=== PATIENT | female | born 1990 | race Caucasian/White ===

== ENCOUNTER 2017-04-05 08:47 | Emergency (ER) | payer OTHER ==
[2017-04-05] MEDS ORDERED: diphenhydrAMINE HCL 50 MG/ML VIAL IV ONE (09:41)
[2017-04-05] MEDS ORDERED: NORMAL SALINE 1,000 ML IV ONE (09:41)
[2017-04-05] MEDS ORDERED: METOCLOPRAMIDE HCL 5 MG/ML VIAL IV ONE (09:41)
--- OUTSIDE RECORDS SUMMARY | 2017-04-05 09:42 | XMS REPORT | Continuity of Care Document ---
:1990 Author Organization [facility] ([facility]) Address [place] [address] Phone [phone] Care Team Providers Name Role Phone Jaquan Whatley Primary Care Provider [phone] Source Comments This disclosure is being made pursuant to the Care Everywhere program, applicable federal and state laws, and may not contain all informaitonavailable regarding this patient.[facility] ([facility]) Active Allergies and Adverse Reactions Allergen Noted Date Severity Reactions Comments Penicillins 03/13/2015 Urticaria (Hives) Sulfadoxine Unknown Current Medications Prescription Sig. Disp. Refills Start Date End Date Status LORazepam 1 mg tablet Take 1 mg by mouth Active at noon and 2 mg at bedtime. lamoTRIgine 200 mg Take 200 mg by mouth Active tablet 2 times daily ondansetron 4 mg tablet Take 4 mg by mouth Active every 8 hours as needed gemfibrozil 600 mg Take 600 mg by mouth Active tablet 2 times daily albuterol 90 Use 2 Puffs by Active mcg/Actuation inhaler inhalation every 6 hours as needed multivitamin tablet Take 1 Tab by mouth Active daily ferrous sulfate 325 mg Take 325 mg by mouth Active (65 mg iron) tablet daily diphenoxylate-atropine Take 1 Tab by mouth Active 2.5-0.025 mg per tablet daily as needed nicotine 21 mg/24 hr Apply 21 mg on the Active patch skin daily clotrimazole-betamethas Apply topically as Active one 1-0.05% cream needed aluminum-magnesium Take 30 mL by mouth 355 mL 11 03/16/2015 Active hydroxide-simethicone every 4 hours as 200-200-20 mg/5 mL needed suspension melatonin 3 mg tablet Take 1 Tab (3 mg 30 Tab 11 03/16/2015 Active total) by mouth at bedtime oxyCODONE 5 mg Take 1 Tab (5 mg 28 Tab 0 03/16/2015 Active immediate release total) by mouth tablet every 6 hours as needed GABAPENTIN 300 mg Take 300 mg by mouth 0 05/17/2015 Active capsule 3 times daily Active Problems Problem Noted Date Drug-induced acute pancreatitis 05/22/2015 Overview: DIFFUSE INTERSTITIAL Depressive disorder, not elsewhere classified 03/13/2015 Hypertriglyceridemia 03/13/2015 Uncomplicated asthma 03/13/2015 Migraine without intractable migraine 03/13/2015 Seizure disorder 03/13/2015 History of acute pancreatitis 03/13/2015 Borderline personality disorder 03/13/2015 Sleep disorder 03/13/2015 Overview: ON SEROQUEL TO ENHANCE SLEEP Borderline intellectual disability 03/13/2015 Overview: LOW VERBAL IQ SCORES Chronic epigastric pain 03/13/2015 Overview: JUN 2014 TO CURRENT Cigarette nicotine dependence with withdrawal 03/13/2015 Obstructive cholestatic liver disease 03/13/2015 Truncal obesity 03/13/2015 Obesity (BMI 30-39.9) 03/13/2015 Resolved Problems Problem Noted Date Resolved Date Recurrent pancreatitis 03/13/2015 03/16/2015 Pancreatic pain 03/13/2015 03/16/2015 Social History Tobacco Use Types Packs/Day Years Used Date Former Smoker Cigarettes 0.2 8 Quit: 03/10/2015 Smokeless Tobacco: Never Used Tobacco Cessation:Counseling Given: Yes Comments: Alcohol Use Drinks/Week oz/Week Comments No Last Filed Vital Signs Vital Sign Reading Time Taken Blood Pressure 117/69 05/17/2015 8:03 AM CDT Pulse 70 05/17/2015 8:03 AM CDT Temperature 36.8 C (98.2 F) 05/17/2015 8:03 AM CDT Respiratory Rate 18 05/17/2015 8:03 AM CDT Height 1.626 m (5' 4") 05/17/2015 8:03 AM CDT Weight 93.3 kg (205 lb 11 oz) 05/17/2015 8:03 AM CDT Body Mass Index 35.29 05/17/2015 8:03 AM CDT Oxygen Saturation 97% 03/16/2015 11:55 AM CDT Plan of Care Health Maintenance Due Date Last Done Comments Hepatitis B Vaccine (1 of 3 - Primary Series) 1990 Tdap Vaccine 1999 Cervical Cancer Screening 2006 Lipid Disorder Screening 2006 MMR Vaccine 2006 Td Vaccine 2006 Varicella Vaccine (1 of 2 - Adult - No Evidence of 2006 Immunity) Pneumococcal Vaccine (1 of 1 - PPSV23) 2007 Influenza Vaccine: Seasonal (#1) 05/28/2016 Results from Last 3 Months Not on file
--- NOTE | 2017-04-05 09:52 | ERNOTE ---
Medical Problem HPI - General Chief Complaint: Nausea/Vomiting Time Seen by Provider: 04/05/17 09:37 Source: patient - Immun/Allergies/Home Medications Immunizations: IMMUNIZATION HX Immunizations Up to Date Yes History of Influenza Vaccine Yes Hx Pneumococcal Vaccination No Allergies/Adverse Reactions: Allergies Sulfa (Sulfonamide Antibiotics) [Sulfa(Sulfonamide Antibiotics)] Allergy (Mild, Verified 04/05/17 09:02) Hives varenicline tartrate [From Chantix] Allergy (Verified 04/05/17 09:02) Penicillins Adverse Reaction (Mild, Verified 04/05/17 09:02) RASH quetiapine Adverse Reaction (Verified 04/05/17 09:02) pancreatitis risperidone [From Risperdal] Adverse Reaction (Verified 04/05/17 09:02) pancreatitis tramadol Adverse Reaction (Verified 04/05/17 09:02) Other Home Medications: HOME MEDICATIONS lamoTRIgine [Lamictal Xr] 100 mg PO DAILY 02/26/15 [Last Taken Unknown] traZODone HCL [Desyrel] 100 mg PO DAILY 11/13/15 [Last Taken Unknown] Gabapentin 800 mg PO DAILY 01/10/16 [Last Taken Unknown] OLANZapine [Zyprexa] 5 mg PO DAILY 01/10/16 [Last Taken Unknown] Dicyclomine HCl [Bentyl] 10 - 20 mg PO TID #180 tab 04/05/17 [Last Taken Unknown ] Ondansetron [Zofran Odt] 4 mg PO Q6H PRN #20 tab 04/05/17 [Last Taken Unknown] Topiramate [Topamax] 25 mg PO BID 04/05/17 [Last Taken Unknown] - History of Present History Narrative: She presents with recurrent mid abdominal pain. Pain was yesterday patient states she's had these pains before and gets pancreatitis. She complains of being nauseated however she denies any emesis. Timing: intermittent Severity: moderate Modifying Factors - (Worsens): Present: eating Review of Systems - Review of Systems Constitutional: Present: See HPI EYE: Present: no symptoms reported ENT: Present: no symptoms reported Respiratory: Present: no symptoms reported Cardiology: Present: no symptoms reported Gastrointestinal/Abdominal: Present: nausea, abdominal pain Genitourinary: Present: no symptoms reported Musculoskeletal: Present: no symptoms reported Skin: Present: no symptoms reported Neurological: Present: no symptoms reported Endocrine: Present: no symptoms reported Hematologic/Lymphatic: Present: no symptoms reported Psych: Present: no symptoms reported - Patient's Past Medical History Patient History - Medical: Anxiety, Bipolar, Depression, Migraines, Seizures, UTI'S, Other - pancreatitis Patient History - Cardiac/Respiratory: No pertinent hx Patient History - Cancer: No Hx of Cancer Patient History - Surgical Procedures: EGD, Ear Tubes, T & A Patient History - Other: None LMP (females 10-50): last week LMP (Calendar): 07/30/16 - Family History Mother Family History - Medical: Other Father Family History - Medical: Other Family History - Cardiac/Respiratory: Myocardial Infarction Grandfather-Paternal Family History - Cardiac/Respiratory: Myocardial Infarction - Social History Living Situations: home Abuse History: No History of abuse Psych History: Hx of Anxiety, Hx of Depression, Hx of Bipolar Disorder, Current tx/ever been on anti-depressants or anti-anxiety meds Does anyone smoke in the home?: Yes Smoking Status: Current every day smoker Have you smoked in the past 12 months: Yes Alcohol Use: none Drug Use: none - Immunizations Immunizations Up to Date: Yes Hx Pneumococcal Vaccination: No History of Influenza Vaccine: Yes Physical Exam - Physical Exam General Appearance: Present: wd/wn, alert, moderate distress Eye Exam: Normal inspection: bilateral, PERRL: bilateral Ears, Nose, Throat: Present: normal ENT inspection, H, normal pharynx Neck: Present: normal inspection, nontender Respiratory: Present: no respiratory distress, normal breath sounds, no accessory muscle use, chest nontender, lungs clear Cardiovascular/Chest: Present: regular rate, rhythm, no murmur, normal peripheral pulses Gastrointestinal/Abdominal: Present: normal bowel sounds, nondistended, soft, no organomegaly, tenderness Rectal Exam: Present: deferred Back Exam: Present: normal inspection, normal range of motion Extremity Exam: Present: normal inspection, non-tender, no edema, normal range of motion Neurological Exam: Present: alert, oriented, normal mood/affect Skin Exam: Present: normal color, warm/dry Lymphatic Exam: Present: no adenopathy ED Progress - Results and Orders Patient's Lab Results:: I have reviewed the patient's lab results. - Vital Signs Patient's Vital Signs:: I have reviewed the patient's vital signs. Vital Signs: Vital Signs 04/05/17 08:58 Temperature 36.9 C Pulse Rate 78 Respiratory 16 Rate Blood Pressure 130/71 O2 Sat by Pulse 97 Oximetry - Progress/Reassessment Chief Complaint: Nausea/Vomiting Progress:: Improved Plan - Plan Plan: Patient was offered x-ray examination for further investigation of her abdominal pain and she refused. Patient be started on Zofran and Bentyl. She she's had this pain in the past and normally her pancreatitis and since it's not she thinks is probably just an upset stomach. Patient would prefer to go home and manage the pain there. Departure - Departure Clinical Impression: Irritable bowel syndrome (IBS) Qualifiers: Irritable bowel syndrome type: without diarrhea Qualified Code(s): K58.9 - Irritable bowel syndrome without diarrhea Abdominal pain Qualifiers: Abdominal location: generalized Qualified Code(s): R10.84 - Generalized abdominal pain Disposition: Home self-care Condition: Good Instructions: Irritable Bowel Syndrome, Adult Referrals: Quinton Shane MD [Primary Care Provider] - Prescriptions: Dicyclomine HCl [Bentyl] 10 - 20 mg PO TID #180 tab Ondansetron [Zofran Odt] 4 mg PO Q6H PRN #20 tab PRN Reason: Nausea And Vomiting
[2017-04-05 09:59] LABS: Hematocrit 39.4 % (37.0-47.0); Hemoglobin 13.3 gm/dL (12.5-16.0); Mean Cell Volume 80.7 fl (78-100); Mean Corpuscular Hemoglobin 27.3 pg (27-31); Mean Corpuscular Hgb Conc 33.8 g/dl (32-36); Mean Platelet Volume 11.5 fl (6.0-9.5); Neutrophil # 10.2 K/mm3 (1.3-6.0); Neutrophil % 77.3 % (42-75.0); Platelet Count 292 K/mm3 (150-450); Red Blood Count 4.88 M/mm3 (4.2-5.4); Red Cell Distribution Width 14.4 % (11.5-14.0); White Blood Count 13.1 K/mm3 (4.0-10.5)
[2017-04-05] MEDS ORDERED: METOCLOPRAMIDE HCL 5 MG/ML VIAL ONE (10:13)
[2017-04-05] MEDS ORDERED: diphenhydrAMINE HCL 50 MG/ML VIAL ONE (10:13)
[2017-04-05 10:14] LABS: Albumin * 3.9 gm/dl (3.4-5.0); Anion Gap 13.7 mmol/L (6.8-13.8); BUN/Creatinine Ratio 12.2 (9.0-21.6); Bilirubin, Total 0.3 mg/dL (0.0-1.1); Ca. Corrected For Albumin 8.9 mg/dL (8.4-10.2); Calcium * 9.1 mg/dL (7.9-10.9); Carbon Dioxide 25.2 mmol/L (24-32.6); Magnesium 1.9 mg/dL (1.2-2.8); Potassium 3.9 mmol/L (3.4-4.6); Total Protein 7.5 gm/dL (6.2-8.2)
[2017-04-05 10:21] LABS: Urine Bilirubin Negative (NEGATIVE); Urine Blood Negative /ul (NEGATIVE); Urine Ketone Negative (NEGATIVE); Urine Nitrite Negative (NEGATIVE); Urine Protein Negative (NEGATIVE); Urine Urobilinogen Normal (NORMAL)
[2017-04-05 10:30] LABS: Urine Appearance Clear; Urine Bacteria TRACE; Urine Color Yellow; Urine RBC None Seen /hpf (0-5); Urine WBC None Seen /hpf (0-5)
[2017-04-05 11:03] VITALS: BP 105/56
== END 2017-04-05 12:06 | disposition home or self-care (01) ==
LOC: ER 08:47
DX: K58.9 Irritable bowel syndrome, unspecified (principal); R10.84 Generalized abdominal pain; F17.200 Nicotine dependence, unspecified, uncomplicated; Z87.440 Personal history of urinary (tract) infections; F31.9 Bipolar disorder, unspecified; R56.9 Unspecified convulsions

== ENCOUNTER 2017-04-14 10:06 | Emergency (ER) | payer OTHER ==
[2017-04-14 10:14] VITALS: BP 114/62
--- OUTSIDE RECORDS SUMMARY | 2017-04-14 10:36 | XMS REPORT | Continuity of Care Document ---
:1990 Author Organization [facility] ([facility]) Address [place] [address] Phone [phone] Care Team Providers Name Role Phone Jaquan Whatley Primary Care Provider [phone] Source Comments This disclosure is being made pursuant to the Care Everywhere program, applicable federal and state laws, and may not contain all informaitonavailable regarding this patient.[facility] ([facility]) Active Allergies and Adverse Reactions Allergen Noted [...]
[2017-04-14] MEDS ORDERED: PROMETHAZINE HCL 12.5 MG SUPP.RECT RC ONE (10:40)
[2017-04-14] MEDS ORDERED: PROMETHAZINE HCL 25 MG SUPP.RECT RC ONE (10:45)
--- NOTE | 2017-04-14 10:56 | ERNOTE ---
Medical Problem HPI - Narrative Date of Service: 04/14/17 - General Chief Complaint: Nausea/Vomiting Time Seen by Provider: 04/14/17 10:22 Source: patient, RN notes reviewed Exam Limitations: no limitations - Immun/Allergies/Home Medications Immunizations: IMMUNIZATION HX Immunizations Up to Date Yes History of Influenza Vaccine No Hx Pneumococcal Vaccination No Allergies/Adverse Reactions: Allergies Sulfa (Sulfonamide Antibiotics) [Sulfa(Sulfonamide Antibiotics)] Allergy (Mild, Verified 04/05/17 09:02) Hives varenicline tartrate [From Chantix] Allergy (Verified 04/05/17 09:02) Penicillins Adverse Reaction (Mild, Verified 04/05/17 09:02) RASH quetiapine Adverse Reaction (Verified 04/05/17 09:02) pancreatitis risperidone [From Risperdal] Adverse Reaction (Verified 04/05/17 09:02) pancreatitis tramadol Adverse Reaction (Verified 04/05/17 09:02) Other Home Medications: HOME MEDICATIONS lamoTRIgine [Lamictal Xr] 100 mg PO DAILY 02/26/15 [Last Taken Unknown] traZODone HCL [Desyrel] 100 mg PO DAILY 11/13/15 [Last Taken Unknown] Gabapentin 800 mg PO DAILY 01/10/16 [Last Taken Unknown] OLANZapine [Zyprexa] 5 mg PO DAILY 01/10/16 [Last Taken Unknown] Dicyclomine HCl [Bentyl] 10 - 20 mg PO TID #180 tab 04/05/17 [Last Taken Unknown ] Ondansetron [Zofran Odt] 4 mg PO Q6H PRN #20 tab 04/05/17 [Last Taken Unknown] Topiramate [Topamax] 25 mg PO BID 04/05/17 [Last Taken Unknown] - Pain Score Pain Score #1 Pain Score: 0 - History of Present History Narrative: 26 y/o female to ED alone by private vehicle after being sent home from work for vomiting and diarrhea. She also complains of dizziness. She reports needing a work excuse for today. Her initial complaint when she checked in was that she needed a test. Her LMP was approximately a month ago. She was seen on 04/05/17 for similar complaints. She reports that she did get better, but then began having vomiting and diarrhea again last evening. She took Zofran this morning with some relief, but then vomited again after a couple of hours. Date (Duration): 04/13/17 Review of Systems - Review of Systems Constitutional: Present: recent illness, malaise. Absent: fever, chills, weight loss EYE: Present: no symptoms reported ENT: Present: no symptoms reported Respiratory: Absent: shortness of breath, cough Cardiology: Absent: chest pain, syncope Gastrointestinal/Abdominal: Present: nausea, vomiting, diarrhea, eating less, drinking less. Absent: abdominal pain Genitourinary: Absent: dysuria, hematuria, other - irregular menses Musculoskeletal: Absent: back pain, muscle pain, neck pain Skin: Absent: rash, lesions Neurological: Present: dizziness/light-headedness. Absent: headache, weakness Endocrine: Present: no symptoms reported Hematologic/Lymphatic: Present: no symptoms reported Psych: Present: no symptoms reported - Patient's Past Medical History Patient History - Medical: Anxiety, Bipolar, Depression, Migraines, Obesity, Seizures, UTI'S, Other Patient History - Cardiac/Respiratory: No pertinent hx Patient History - Cancer: No Hx of Cancer Patient History - Surgical Procedures: EGD, Ear Tubes, T & A Patient History - Other: None LMP (females 10-50): 1 month - Family History Mother Family History - Medical: Other Father Family History - Medical: Other Family History - Cardiac/Respiratory: Myocardial Infarction Grandfather-Paternal Family History - Cardiac/Respiratory: Myocardial Infarction - Social History Living Situations: home Abuse History: No History of abuse Psych History: Hx of Anxiety, Hx of Depression, Hx of Bipolar Disorder, Current tx/ever been on anti-depressants or anti-anxiety meds Does anyone smoke in the home?: Yes Smoking Status: Current every day smoker Have you smoked in the past 12 months: Yes Alcohol Use: none Drug Use: none - Immunizations Immunizations Up to Date: Yes Hx Pneumococcal Vaccination: No History of Influenza Vaccine: No Physical Exam - Physical Exam General Appearance: Present: wd/wn, alert, no apparent distress, obese Neck: Present: normal inspection, nontender, supple, full range of motion Respiratory: Present: no respiratory distress, normal breath sounds, no accessory muscle use, lungs clear Cardiovascular/Chest: Present: regular rate, rhythm, no murmur, normal peripheral pulses Gastrointestinal/Abdominal: Present: normal bowel sounds, nontender, nondistended, soft. Absent: guarding, rebound, mass Back Exam: Present: normal inspection, normal range of motion, no CVA tenderness Extremity Exam: Present: normal inspection, normal range of motion, no edema Neurological Exam: Present: alert, oriented, normal mood/affect, no motor/ sensory deficits Skin Exam: Present: normal color, warm/dry ED Progress - Results and Orders Patient's Lab Results:: I have reviewed the patient's lab results. - Vital Signs Patient's Vital Signs:: I have reviewed the patient's vital signs. Vital Signs: Vital Signs 04/14/17 10:10 Temperature 36.1 C L Pulse Rate 73 Respiratory 16 Rate Blood Pressure 114/62 O2 Sat by Pulse 97 Oximetry - Progress/Reassessment Chief Complaint: Nausea/Vomiting Progress:: Unchanged Plan - Plan Plan: No vomiting or diarrhea while in department. Patient is well appearing. test is negative. Phenergan suppository sent home with patient to use when she gets there because she has to drive home. Departure - Departure Clinical Impression: Nausea vomiting and diarrhea Disposition: Home self-care Condition: Stable Instructions: Viral Gastroenteritis, Adult, [id number], Form - Excuse from Work, School, or Physical Activity Referrals: Quinton Shane MD [Primary Care Provider] -
== END 2017-04-14 10:47 | disposition home or self-care (01) ==
LOC: ER 10:06
DX: R11.2 Nausea with vomiting, unspecified (principal); R19.7 Diarrhea, unspecified; F17.200 Nicotine dependence, unspecified, uncomplicated

== ENCOUNTER 2017-05-29 12:13 | Emergency (ER) | payer OTHER ==
[2017-05-29] MEDS ORDERED: PROMETHAZINE HCL 50 MG/ML AMPUL IM ONE ×3 (13:05→13:26)
[2017-05-29] MEDS ORDERED: KETOROLAC TROMETHAMINE 60 MG/2 ML VIAL IM ONE ×2 (13:05→13:19)
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
[2017-05-29 13:36] VITALS: BP 97/71
== END 2017-05-29 13:39 | disposition home or self-care (01) ==
LOC: ER 12:13
DX: G43.909 Migraine, unspecified, not intractable, without status migrainosus (principal); F17.200 Nicotine dependence, unspecified, uncomplicated

== ENCOUNTER 2017-06-14 20:21 | Emergency (ER) | payer OTHER ==
--- NOTE | 2017-06-14 20:52 | ERNOTE ---
Neuro HPI ER Record Date of Service: 06/14/17 Time Seen by Provider: 06/14/17 20:46 Immunizations: IMMUNIZATION HX Immunizations Up to Date Yes History of Influenza Vaccine Yes Hx Pneumococcal Vaccination No Allergies/Adverse Reactions: Allergies Allergy/AdvReac Type Severity Reaction Status Date / Time Sulfa (Sulfonamide Allergy Mild Hives Verified 06/14/17 20:34 Antibiotics) [Sulfa(Sulfonamide Antibiotics)] varenicline tartrate Allergy Verified 06/14/17 20:34 [From Chantix] Penicillins AdvReac Mild RASH Verified 06/14/17 20:34 quetiapine AdvReac pancreatiti Verified 06/14/17 20:34 s risperidone [From Risperdal] AdvReac pancreatiti Verified 06/14/17 20:34 s tramadol AdvReac Other Verified 06/14/17 20:34 Home Medications: HOME MEDICATIONS Atorvastatin Calcium [Lipitor] 40 mg PO DAILY 06/14/17 [Last Taken Unknown] FLUoxetine HCL [Prozac] 20 mg PO DAILY 06/14/17 [Last Taken Unknown] Fenofibrate Nanocrystallized [Tricor] 145 mg PO DAILY 06/14/17 [Last Taken Unknown] Ferrous Sulfate 325 mg PO DAILY 06/14/17 [Last Taken Unknown] OLANZapine [Zyprexa] 10 mg PO HS 06/14/17 [Last Taken Unknown] Omeprazole 40 mg PO DAILY 06/14/17 [Last Taken Unknown] Ranitidine HCl 300 mg PO HS 06/14/17 [Last Taken Unknown] Topiramate [Topamax] 100 mg PO BID 06/14/17 [Last Taken Unknown] hydrOXYzine HCL [Atarax] 25 mg PO TID PRN 06/14/17 [Last Taken Unknown] levETIRAcetam [Keppra] 1,000 mg PO BID #60 tablet 06/14/17 [Last Taken Unknown] levETIRAcetam [Keppra] 500 mg PO BID 06/14/17 [Last Taken Unknown] traZODone HCL [Trazodone HCl] 1 - 2 tab PO HS 06/14/17 [Last Taken Unknown] - History of Present Illness Narrative: This is a 26-year-old female with a history of seizures. The patient states that she is on Keppra. She says she has been taking it as prescribed. The patient started having generalized tonic-clonic seizures, which are her normal seizure type, on Saturday. They've increased in frequency until this evening when she has had 3 in the last hour, 5 today. These are generalized tonic- clonic seizures. They resolve spontaneously. They last for minutes. Patient denies any fever or chills. She has had a headache. She denies nausea or vomiting. She denies she denies alcohol use she denies drug use patient denies any other complaints. She says everything else is completely normal. Review of Systems - Review of Systems Constitutional: Present: no symptoms reported EYE: Present: no symptoms reported ENT: Present: no symptoms reported Respiratory: Present: no symptoms reported Cardiology: Present: no symptoms reported Gastrointestinal/Abdominal: Present: no symptoms reported Genitourinary: Present: no symptoms reported Musculoskeletal: Present: no symptoms reported Skin: Present: no symptoms reported Neurological: Present: See HPI, headache, dizziness/light-headedness, seizure Endocrine: Present: no symptoms reported Hematologic/Lymphatic: Present: no symptoms reported Psych: Present: no symptoms reported All Other Systems: All systems neg except as marked - Patient's Past Medical History Patient History - Medical: Anxiety, Bipolar, Depression, Migraines, Obesity, Seizures, UTI'S, Other Patient History - Cardiac/Respiratory: Hyperlipidemia Patient History - Cancer: No Hx of Cancer Patient History - Surgical Procedures: EGD, Ear Tubes, T & A Patient History - Other: None LMP (females 10-50): this week LMP (Calendar): 06/09/17 - Family History Mother Family History - Medical: Other Father Family History - Medical: Other Family History - Cardiac/Respiratory: Myocardial Infarction Grandfather-Paternal Family History - Cardiac/Respiratory: Myocardial Infarction - Social History Living Situations: home Abuse History: No History of abuse Psych History: Hx of Anxiety, Hx of Depression, Hx of Bipolar Disorder, Current tx/ever been on anti-depressants or anti-anxiety meds Does anyone smoke in the home?: Yes Smoking Status: Current every day smoker Alcohol Use: none Drug Use: none - Immunizations Immunizations Up to Date: Yes Hx Pneumococcal Vaccination: No History of Influenza Vaccine: Yes Physical Exam - Physical Exam General Appearance: Present: wd/wn, alert, no apparent distress Head Exam: Present: normal inspection, no evidence of injury, other - patient's eyes have non-fatigable horizontal nystagmus. Eye Exam: Normal inspection: bilateral, PERRL: bilateral, EOMI: bilateral Ears, Nose, Throat: Present: normal ENT inspection, normal pharynx Neck: Present: normal inspection, nontender Respiratory: Present: no respiratory distress, normal breath sounds, no accessory muscle use, chest nontender, lungs clear Cardiovascular/Chest: Present: regular rate, rhythm, no murmur, normal peripheral pulses Gastrointestinal/Abdominal: Present: normal bowel sounds, nontender, nondistended, soft, no organomegaly Back Exam: Present: normal inspection, normal range of motion, no CVA tenderness , no vertebral tenderness Extremity Exam: Present: normal inspection, non-tender, no edema Neurological Exam: Present: alert, oriented, normal mood/affect, other - patient has cerebellar dysfunction. Distant diadochokinesis. Difficulty with [id number]. Reflexes are intact. Cognition is slow but intact. Skin Exam: Present: normal color, warm/dry Lymphatic Exam: Present: no adenopathy ED Progress - Results and Orders Patient's Lab Results:: I have reviewed the patient's lab results. - Vital Signs Patient's Vital Signs:: I have reviewed the patient's vital signs. Vital Signs: Vital Signs 06/14/17 20:26 Temperature 36.5 C Pulse Rate 71 Respiratory 16 Rate O2 Sat by Pulse 96 Oximetry - Progress/Reassessment Chief Complaint: Seizure Activity Progress:: Improved Progress Note-Subjective: 06/14/17 21:44 I have discussed the case with the neurologist adult basic education manager at the [facility]. She agrees that increasing the patient's Keppra to 1000 mg twice a day would be appropriate. She does not believe that the patient would need to be admitted to the hospital. The patient does need to have a comprehensive evaluation done by neurology. I'm to remind the patient she is not to drive for the next 6 months. I discussed these things with the patient. She is verbalized understanding. I will write another prescription. I am still waiting the CAT scan report. Departure Clinical Impression: Seizure - Departure Disposition: Home self-care Condition: Stable Instructions: Epilepsy Additional Instructions: As we discussed, I want you to increase your Keppra dose to 1000 mg twice a day. This is double the dose here taking now. If you have any seizures starting tomorrow morning and he did return to the ER. I want you call your family doctor set up a follow-up appointment. He will likely need to see a neurologist in consultation. He can only return to work after you have been released by her primary care doctor. Absolutely no driving until you are released by a neurologist. Return to the ER for new or worrisome symptoms. Referrals: Quinton Shane MD [Primary Care Provider] - Prescriptions: levETIRAcetam [Keppra] 1,000 mg PO BID #60 tablet
[2017-06-14] MEDS ORDERED: MORPHINE SULFATE 4 MG/ML SYRG ONE (21:02)
[2017-06-14] MEDS ORDERED: MORPHINE SULFATE 4 MG/ML SYRG IV ONE (21:02)
[2017-06-14 21:04] LABS: Hematocrit 38.2 % (37.0-47.0); Hemoglobin 12.6 gm/dL (12.5-16.0); Mean Cell Volume 84.1 fl (78-100); Mean Corpuscular Hemoglobin 27.8 pg (27-31); Mean Platelet Volume 11.5 fl (6.0-9.5); Neutrophil # 4.4 K/mm3 (1.3-6.0); Neutrophil % 51.9 % (42-75.0); Platelet Count 238 K/mm3 (150-450); Red Blood Count 4.54 M/mm3 (4.2-5.4); Red Cell Distribution Width 14.5 % (11.5-14.0); White Blood Count 8.5 K/mm3 (4.0-10.5)
[2017-06-14 21:06] LABS: Urine Bilirubin Negative (NEGATIVE); Urine Ketone Negative (NEGATIVE); Urine Nitrite Negative (NEGATIVE); Urine Protein Negative (NEGATIVE); Urine Urobilinogen Normal (NORMAL)
[2017-06-14 21:19] LABS: Albumin * 3.6 gm/dl (3.4-5.0); Anion Gap 14.5 mmol/L (6.8-13.8); BUN/Creatinine Ratio 10.8 (9.0-21.6); Bilirubin, Total 0.2 mg/dL (0.0-1.1); Ca. Corrected For Albumin 8.7 mg/dL (8.4-10.2); Calcium * 8.7 mg/dL (7.9-10.9); Carbon Dioxide 22.9 mmol/L (24-32.6); Potassium 3.4 mmol/L (3.4-4.6)
[2017-06-14 21:33] LABS: Urine Blood 10 /ul (NEGATIVE)
[2017-06-14 21:34] LABS: Urine Appearance Clear; Urine Bacteria 2+; Urine Color Yellow; Urine RBC None Seen /hpf (0-5); Urine WBC 0-5 /hpf (0-5)
[2017-06-14 21:40] LABS: Cocaine Ur Negative (NEGATIVE); Urine Barbiturate Negative (NEGATIVE); Urine Benzodiazepines Negative (NEGATIVE); Urine Opiates Negative (NEGATIVE); Urine PCP Negative (NEGATIVE); Urine THC Negative (NEGATIVE)
[2017-06-14] MEDS ORDERED: HYDROcodone/ACETAMINOPHEN 1 EACH TABLET PO ONE (21:56)
[2017-06-14] MEDS ORDERED: HYDROcodone/ACETAMINOPHEN 1 EACH TABLET ONE (21:59)
[2017-06-14] MEDS ORDERED: levETIRAcetam 500 MG TABLET PO ONE (22:15)
[2017-06-14 22:31] VITALS: BP 106/66
== END 2017-06-14 22:29 | disposition home or self-care (01) ==
LOC: ER 20:21
DX: R56.9 Unspecified convulsions (principal); F41.8 Other specified anxiety disorders; F31.70 Bipolar disorder, currently in remission, most recent episode unspecified; E78.5 Hyperlipidemia, unspecified; F17.200 Nicotine dependence, unspecified, uncomplicated

== ENCOUNTER 2017-06-20 10:56 | Emergency (ER) | payer OTHER ==
[2017-06-20] MEDS ORDERED: ACETAMINOPHEN 325 MG TABLET ONE (11:37)
[2017-06-20 11:38] LABS: Hematocrit 40.1 % (37.0-47.0); Hemoglobin 13.2 gm/dL (12.5-16.0); Mean Cell Volume 84.2 fl (78-100); Mean Corpuscular Hemoglobin 27.7 pg (27-31); Mean Corpuscular Hgb Conc 32.9 g/dl (32-36); Mean Platelet Volume 11.6 fl (6.0-9.5); Neutrophil # 5.6 K/mm3 (1.3-6.0); Platelet Count 239 K/mm3 (150-450); Red Blood Count 4.76 M/mm3 (4.2-5.4); Red Cell Distribution Width 14.2 % (11.5-14.0); White Blood Count 8.8 K/mm3 (4.0-10.5)
[2017-06-20] MEDS: ACETAMINOPHEN 325 MG TABLET PO ONE (11:40)
[2017-06-20 11:55] LABS: Albumin * 3.7 gm/dl (3.4-5.0); Anion Gap 14.5 mmol/L (6.8-13.8); BUN/Creatinine Ratio 12.7 (9.0-21.6); Bilirubin, Total 0.4 mg/dL (0.0-1.1); Ca. Corrected For Albumin 8.9 mg/dL (8.4-10.2); Carbon Dioxide 23.1 mmol/L (24-32.6); Potassium 3.6 mmol/L (3.4-4.6); Total Protein 7.3 gm/dL (6.2-8.2)
[2017-06-20 12:00] LABS: Urine Bilirubin Negative (NEGATIVE); Urine Blood Negative /ul (NEGATIVE); Urine Ketone Negative (NEGATIVE); Urine Nitrite Negative (NEGATIVE); Urine Protein Negative (NEGATIVE); Urine Urobilinogen Normal (NORMAL)
[2017-06-20 12:11] LABS: Urine Appearance Slightly Cloudy; Urine Bacteria 1+; Urine Color Yellow; Urine RBC None Seen /hpf (0-5); Urine Renal Epithelial Cell Few - 1+ /hpf; Urine WBC TRACE /hpf (0-5)
[2017-06-20] MEDS ORDERED: ALBUTEROL SULFATE/IPRATROPIUM 3 ML NEBU IH ONE (12:35)
[2017-06-20 13:17] VITALS: BP 106/66
--- NOTE | 2017-06-20 13:36 | ERNOTE ---
Neuro HPI ER Record Date of Service: 06/20/17 Presenting Symptoms: other - seizure-like episode Time Seen by Provider: 06/20/17 11:09 Source: patient Exam Limitations: no limitations Immunizations: IMMUNIZATION HX Immunizations Up to Date Yes History of Influenza Vaccine Yes Hx Pneumococcal Vaccination No Allergies/Adverse Reactions: Allergies Allergy/AdvReac Type Severity Reaction Status Date / Time Sulfa (Sulfonamide Allergy Mild Hives Verified 06/20/17 11:02 Antibiotics) [Sulfa(Sulfonamide Antibiotics)] varenicline tartrate Allergy Verified 06/20/17 11:02 [From Chantix] Penicillins AdvReac Mild RASH Verified 06/20/17 11:02 quetiapine AdvReac pancreatiti Verified 06/20/17 11:02 s risperidone [From Risperdal] AdvReac pancreatiti Verified 06/20/17 11:02 s tramadol AdvReac Other Verified 06/20/17 11:02 Home Medications: HOME MEDICATIONS Atorvastatin Calcium [Lipitor] 40 mg PO DAILY 06/14/17 [Last Taken Unknown] FLUoxetine HCL [Prozac] 20 mg PO DAILY 06/14/17 [Last Taken Unknown] Fenofibrate Nanocrystallized [Tricor] 145 mg PO DAILY 06/14/17 [Last Taken Unknown] Ferrous Sulfate 325 mg PO DAILY 06/14/17 [Last Taken Unknown] OLANZapine [Zyprexa] 10 mg PO HS 06/14/17 [Last Taken Unknown] Omeprazole 40 mg PO DAILY 06/14/17 [Last Taken Unknown] Ranitidine HCl 300 mg PO HS 06/14/17 [Last Taken Unknown] Topiramate [Topamax] 100 mg PO BID 06/14/17 [Last Taken Unknown] hydrOXYzine HCL [Atarax] 25 mg PO TID PRN 06/14/17 [Last Taken Unknown] levETIRAcetam [Keppra] 1,000 mg PO BID #60 tablet 06/14/17 [Last Taken Unknown] levETIRAcetam [Keppra] 500 mg PO BID 06/14/17 [Last Taken Unknown] traZODone HCL [Trazodone HCl] 1 - 2 tab PO HS 06/14/17 [Last Taken Unknown] - History of Present Illness Narrative: Patient presents to the ED for seizure-like episode. She was seen here recently for these episodes and had her Keppra increased. There has been no tonic- clonic seizure activity. She has episodes that she seems to be "blacking out". This is exactly like what she has had before, nothing different about it. No focal N/T/W. Mild QUEZADA right now. She had an episode yesterday and 5 minute episode today. No Focal N/T/W. no CP or SOB. These are exactly like what she has had for some time, nothing different. Was seen here for same and had keppra increased. No other associated Sx. Onset: intermittent, gone now - Character of Deficits New weakness: Present: other - none Altered sensation: Present: other - none Additional Deficits: Absent: vision problems, difficulty swallowing, weakness Associated Symptoms: Denies: fever/chills, chest pain, neck/back pain, fainting , altered mental status, confused, decreased responsiveness Prior Treament: Reports: recently seen Review of Systems - Review of Systems Constitutional: Absent: fever ENT: Absent: sore throat Respiratory: Absent: shortness of breath Cardiology: Absent: chest pain Gastrointestinal/Abdominal: Absent: abdominal pain Genitourinary: Absent: dysuria Skin: Absent: rash Neurological: Absent: weakness - Patient's Past Medical History Patient History - Medical: Anxiety, Bipolar, Depression, Migraines, Obesity, Seizures, UTI'S, Other Patient History - Cardiac/Respiratory: Hyperlipidemia Patient History - Cancer: No Hx of Cancer Patient History - Surgical Procedures: EGD, Ear Tubes, T & A Patient History - Other: None LMP (females 10-50): last week LMP (Calendar): 06/09/17 - Family History Mother Family History - Medical: Other Father Family History - Medical: Other Family History - Cardiac/Respiratory: Myocardial Infarction Grandfather-Paternal Family History - Cardiac/Respiratory: Myocardial Infarction - Social History Living Situations: home Abuse History: No History of abuse Psych History: Hx of Anxiety, Hx of Depression, Hx of Bipolar Disorder, Current tx/ever been on anti-depressants or anti-anxiety meds Does anyone smoke in the home?: Yes Alcohol Use: none Drug Use: none - Immunizations Immunizations Up to Date: Yes Hx Pneumococcal Vaccination: No History of Influenza Vaccine: Yes Physical Exam - Physical Exam General Appearance: Present: alert, no apparent distress Head Exam: Present: normal inspection, no evidence of injury Eye Exam: Normal inspection: bilateral, PERRL: bilateral Ears, Nose, Throat: Present: normal ENT inspection Neck: Present: normal inspection, other - no meningeal signs Respiratory: Present: no respiratory distress, normal breath sounds, no accessory muscle use, lungs clear Cardiovascular/Chest: Present: regular rate, rhythm Gastrointestinal/Abdominal: Present: normal bowel sounds, nontender, soft. 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 No motor or sensory deficits.. Absent: motor weakness Skin Exam: Present: normal color, warm/dry. Absent: skin rash ED Progress - Results and Orders Patient's Lab Results:: I have reviewed the patient's lab results. - Vital Signs Patient's Vital Signs:: I have reviewed the patient's vital signs. Vital Signs: Vital Signs 06/20/17 06/20/17 06/20/17 10:57 11:03 11:41 Temperature 36.7 C Pulse Rate 61 63 70 Respiratory 13 19 10 L Rate Blood Pressure 104/70 104/70 110/69 O2 Sat by Pulse 98 99 98 Oximetry 06/20/17 06/20/17 06/20/17 12:03 12:17 12:32 Temperature Pulse Rate 60 57 L 59 L Respiratory 22 H 22 H 19 Rate Blood Pressure 97/55 107/65 105/71 O2 Sat by Pulse 98 99 98 Oximetry 06/20/17 06/20/17 12:47 13:16 Temperature Pulse Rate 55 L 52 L Respiratory 14 16 Rate Blood Pressure 101/71 106/66 O2 Sat by Pulse 97 99 Oximetry - Progress/Reassessment Chief Complaint: Seizure Activity Progress Note-Subjective: 06/20/17 13:33 I do not feel a repeat CT indicated. Labs reviewed. UA appears contaminated. No Sx. No fever. Nothing to suggest fever, meningitis, stroke or other acute life threat. She ambulates here without assistance. She feels like going home. I called her neurologist office, he is not available, however they will see her in follow-up and she was instructed to call the office for an appointment. i do not feel any additional medication change neded at this time. These episodes are exactly like what she has been having, nothing different. She feels like going home. i discussed warning signs and reasons to return as well as the need for close f/u. Departure Clinical Impression: Seizure-like activity - Departure Disposition: Home self-care Condition: Stable Instructions: Seizure, Adult, [id number] Additional Instructions: Continue current medications. Call your Neurologist today for an appointment. Call your primary doctor also for an appointment as soon as possible. Rest. Fluids. Return for recurrent episodes, fever, numbness, tingling, weakness or if your condition worsens or changes in any way. Referrals: Quinton Shane MD [Primary Care Provider] -
== END 2017-06-20 13:46 | disposition home or self-care (01) ==
LOC: ER 10:56
DX: R56.9 Unspecified convulsions (principal); Z87.442 Personal history of urinary calculi; E78.5 Hyperlipidemia, unspecified; F41.9 Anxiety disorder, unspecified; F31.9 Bipolar disorder, unspecified